=== PATIENT | female | born 1985 ===

== ENCOUNTER 2022-05-26 09:55 | Emergency (ER) | payer OTHER, SELFPAY ==
[2022-05-26] VITALS (20 sets, daily range): BP systolic 117–146; BP diastolic 65–82; PULSE 67–99; RESP 12–18; TEMP 36.8; O2SAT 98–100
--- NOTE | 2022-05-26 11:17 | ED.ABDPAIN ---
HPI - Abdominal Pain General Chief Complaint: Abdominal Pain Stated Complaint: sent from [facility] Dysentery Time Seen by Provider: 05/26/22 10:07 Source: patient Mode of arrival: Ambulatory History of Present Illness HPI narrative: The patient 37-year-old healthy female who presents today with abdominal pain and diarrhea ongoing for last 5 days or so. She reports that she was traveling in [place] she has had some intermittent bloody stools. She is had some mild nausea no significant vomiting. She reports multiple episodes of diarrhea and now some severe abdominal pain. No dizziness or lightheadedness. She reports every time she tries to drink water rashes right through her. She did have fever but that seems to have stopped as well. She was able to give us a stool sample. She denies any chest pain shortness breath palpitations or other symptoms. Related Data Previous Rx's Medication Instructions Recorded methocarbamol 500 mg tablet 500 mg PO TID PRN muscle pain #20 06/25/21 tabs ciprofloxacin HCl 500 mg tablet 500 mg PO BID #14 tabs 05/26/22 (Cipro) metronidazole 500 mg tablet 500 mg PO Q8H 7 days #21 tabs 05/26/22 ondansetron 4 mg disintegrating 4 mg PO Q8H PRN nausea and 05/26/22 tablet vomiting #10 tabs Allergies Allergy/AdvReac Type Severity Reaction Status Date / Time amoxicillin AdvReac Mild rash Verified 07/26/21 08:35 Penicillins AdvReac Mild rash Verified 07/26/21 08:35 Review of Systems Review of Systems ROS Unobtainable: All systems reviewed & are unremarkable except as noted in HPI and below Patient History Medical History Hernia Spontaneous vaginal delivery (~2014) Family History Father Alcohol abuse CAD (coronary artery disease) Social History marital status: number of children: 1 occupational status: employed Smoking Status: Current some day smoker alcohol intake: current (wine 5-7x/week) substance use type: marijuana Smoking Status: Current some day smoker tobacco type: cigarettes alcohol intake frequency: a few times a week Substance Use Type: marijuana Exam Initial Vital Signs Initial Vital Signs: Vital Signs Pulse Rate 75 03/10/23 10:01 Blood Pressure 146/82 H 05/26/22 10:01 Pulse Oximetry 100 05/26/22 10:01 GENERAL: Alert 37-year-old female appears to feel unwell and in no acute distress. HEENT: Head atraumatic,EOMI, pupils reactive, face symmetric, moist mucous membranes CARDIOVASCULAR: Regular rate and rhythm without murmurs, rubs or gallops. RESPIRATORY: Breath sounds equal bilaterally, no wheezes rales or rhonchi. ABDOMEN: Soft, mild tenderness supraumbilical area no guarding no rebound no distention EXTREMITIES: Normal range of motion, no clubbing or edema. Neurovascularly intact NEUROLOGICAL: Alert and oriented x4 SKIN: Warm, dry, no laceration, no petechiae, no rashes or lesions. Course Orders Ordered: ED Orders 05/26/22 11:30 Urine Microscopic Stat 05/26/22 11:40 Complete Blood Count AUTO DIFF Stat Comprehensive Metabolic Panel Stat Lipase Stat Discontinued Medications Sodium Chloride (Normal Saline 0.9%) 1,000 mls @ 1,000 mls/hr IV BOLUS ONE Stop: 05/26/22 11:50 Last Infusion: 05/26/22 13:08 Dose: 0 mls/hr Documented By: Admin: 05/26/22 12:06 Dose: 1,000 mls/hr Documented By: AMU Sodium Chloride (Normal Saline 0.9%) 1,000 mls @ 1,000 mls/hr IV BOLUS ONE Stop: 05/26/22 14:10 Last Infusion: 05/26/22 14:23 Dose: 0 mls/hr Documented By: Admin: 05/26/22 13:21 Dose: 1,000 mls/hr Documented By: RB Ketorolac Tromethamine (Ketorolac 30 Mg/Ml Vial) 30 mg IV NOW ONE Stop: 05/26/22 10:52 Last Admin: 05/26/22 12:06 Dose: 30 mg Documented By: AMU Ondansetron HCl (Ondansetron 4 Mg/2 Ml Inj) 4 mg IV NOW ONE Stop: 05/26/22 10:52 Last Admin: 05/26/22 12:06 Dose: 4 mg Documented By: AMU Vital Signs Vital signs: Vital Signs - 8 hr 05/26/22 11:12 05/26/22 11:15 05/26/22 11:15 Pulse Rate 67 79 Respiratory Rate Blood Pressure 137/77 Pulse Oximetry 100 98 05/26/22 11:30 05/26/22 11:30 05/26/22 11:45 Pulse Rate 74 Respiratory Rate Blood Pressure 143/72 H 143/82 H Pulse Oximetry 99 05/26/22 11:45 05/26/22 12:00 05/26/22 12:15 Pulse Rate 77 86 Respiratory Rate 16 12 Blood Pressure Pulse Oximetry 98 100 99 05/26/22 12:30 05/26/22 12:45 05/26/22 13:00 Pulse Rate 90 99 H 95 H Respiratory Rate 12 18 14 Blood Pressure Pulse Oximetry 99 100 99 05/26/22 13:08 05/26/22 13:08 05/26/22 13:15 Pulse Rate 93 H Respiratory Rate 16 Blood Pressure 121/72 118/66 Pulse Oximetry 98 05/26/22 13:15 05/26/22 13:30 05/26/22 13:30 Pulse Rate 90 91 H Respiratory Rate Blood Pressure 120/68 Pulse Oximetry 98 98 05/26/22 13:45 05/26/22 13:45 05/26/22 14:00 Pulse Rate 89 Respiratory Rate Blood Pressure 134/72 120/66 Pulse Oximetry 99 05/26/22 14:00 05/26/22 14:15 05/26/22 14:15 Pulse Rate 86 98 H Respiratory Rate 14 18 Blood Pressure 117/65 Pulse Oximetry 99 98 05/26/22 14:30 05/26/22 14:30 05/26/22 14:38 Pulse Rate 94 H Respiratory Rate 13 Blood Pressure 125/76 125/75 Pulse Oximetry 98 05/26/22 14:38 Pulse Rate 91 H Respiratory Rate 18 Blood Pressure Pulse Oximetry 98 MDM - Abdominal Pain Lab Data 05/26/22 11:40 05/26/22 11:40 Labs: Lab Results 05/26/22 05/26/22 05/26/22 Range/Units 11:30 11:40 11:40 WBC 4.7 (4.5-11.0) X10^3/uL RBC 4.59 (4.0-5.2) X10^6/uL Hgb 14.1 (12.0-16.0) g/dL Hct 41.7 (36-46) % MCV 90.9 (80-100) fL MCH 30.7 (26-34) PG MCHC 33.8 (30-36) % RDW 12.9 (11.6-14.8) % Plt Count 260 (150-400) X10^3/uL Neut % (Auto) 72.4 (50-75) % Lymph % (Auto) 18.4 L (25-40) % [place] % (Auto) 8.3 (3-14) % Eos % (Auto) 0.5 L (2-4) % Baso % (Auto) 0.4 (0-2) % Neut # (Auto) 3400 (9071-7343) /uL Lymph # (Auto) 900 L (0383-0165) /uL [place] # (Auto) 400 (0-900) /uL Eos # (Auto) 0 (0-450) /uL Baso # (Auto) 0 (0-100) /uL Sodium 134 L (137-145) mmol/L Potassium 3.6 (3.4-5.1) mmol/L Chloride 102 (98-107) mmol/L Carbon Dioxide 25 (22-32) mmol/L BUN 7 (7-17) mg/dL Creatinine 0.71 (0.52-1.04) mg/dL Estimated GFR > 60 (>60) mL/min BUN/Creatinine Ratio 9.9 (6-22) Glucose 99 (70-100) mg/dL Calcium 8.5 (8.4-10.2) mg/dL Total Bilirubin 0.2 (0.2-1.3) mg/dL AST 18 (14-36) IU/L ALT 16 (<35) IU/L Alkaline Phosphatase 56 (38-126) U/L Total Protein 6.9 (6.3-8.2) g/dL Albumin 3.9 (3.5-5.0) g/dL Globulin 3.0 (1.7-4.1) g/dL Albumin/Globulin Ratio 1.3 (1.0-2.8) Lipase 29 (23-300) U/L Urine RBC 0-1/hpf (0-5/HPF) Urine WBC 1-5/hpf (0-5/HPF) Ur Squamous Epith Cells 5-10 /hpf H (0-5/HPF) Amorphous Sediment 1+ Urine Bacteria Few (2-10) H (None) Urine Mucus 1+ H (Negative) Ur Culture Indicated? Cult not indicated Point of care testing: Point of Care Testing Test Results Negative Urine Dip Bedside Urine Glucose Negative Bedside Urine Bilirubin - Negative Bedside Urine Ketone +++ 80 Urine Specific [place] 1.020 Bedside Urine Occult Blood +/- Bedside Urine pH 6.0 Bedside Urine Protein + 30 Bedside Urine Urobilinogen - Negative Bedside Urine Nitrite - Negative Bedside Urine Leukocytes - Negative Esterase MDM Narrative Medical decision making narrative: Patient healthy 37-year-old female who presents with multiple episodes of diarrhea and fever abdominal pain ongoing for last 4-5 days after traveling. Stool sample was apparently collected but not received by lab. At this time I do think it is reasonable to start her on antibiotics. She is not significantly dehydrated there is no electrolyte abnormality or DAVID. She is not tachycardic or hypotensive. She is feeling better after Toradol Zofran and 2 L of fluids. Abdomen is reexamined not significantly tender this time I do not see any need for CT. Stool sample apparently was sent but somehow got lost in the lab. Due to the amount of diarrhea that she is having it has been ongoing for 5 days I do think reasonable to start on antibiotics. He is given Cipro and Flagyl. She is tolerating fluids. No need for admission at this time. Discharge Plan Departure Patient Disposition: Home Clinical Impression: Gastroenteritis Instructions: DI for Bacterial Gastroenteritis -- Adult Activity Restrictions/Additional Instructions: *You have been diagnosed with gastroenteritis *What to do: At this time increase fluids as tolerated. Your labs do not look terribly dehydrated. I do think it is reasonable distress buttocks. *Continue to take medications as directed Cipro 500 mg twice a day for 7 days Flagyl 500 mg 3 times a day for 7 days *Follow up with your primary care provider in 2-3 days or call [phone] *Return to ER if you should have persistent diarrhea not tolerating fluids passing out or any new, worsening or concerning symptoms Prescriptions: New metronidazole 500 mg tablet 500 mg PO Q8H 7 Days Qty: 21 0RF ciprofloxacin HCl [Cipro] 500 mg tablet 500 mg PO BID Qty: 14 0RF ondansetron 4 mg tablet,disintegrating 4 mg PO Q8H PRN (Reason: nausea and vomiting) Qty: 10 0RF No Action methocarbamol 500 mg tablet 500 mg PO TID PRN (Reason: muscle pain) Qty: 20 0RF Referrals: Keena Aguirre DO [Primary Care Provider] - Stand Alone Forms: Patient Portal/API
[2022-05-26 11:49] LABS: Add Manual Diff / Slide Review NO; Basophils Absolute Auto 0 /uL (0-100); Basophils Percent Auto 0.4 % (0-2); Eosinophils Absolute Auto 0 /uL (0-450); Eosinophils Percent Auto 0.5 % (2-4); Hematocrit 41.7 % (36-46); Hemoglobin 14.1 g/dL (12.0-16.0); Lymphocytes Absolute Auto 900 /uL (1100-4500); Lymphocytes Percent Auto 18.4 % (25-40); Mean Corpuscular HGB Conc 33.8 % (30-36); Mean Corpuscular Hemoglobin 30.7 PG (26-34); Mean Corpuscular Volume 90.9 fL (80-100); Monocytes Absolute Auto 400 /uL (0-900); Monocytes Percent Auto 8.3 % (3-14); Neutrophils Absolute Auto 3400 /uL (1500-7000); Neutrophils Percent Auto 72.4 % (50-75); Platelet Count 260 X10^3/uL (150-400); Red Blood Cell Count 4.59 X10^6/uL (4.0-5.2); Red Cell Distribution Width 12.9 % (11.6-14.8); White Blood Cell Count 4.7 X10^3/uL (4.5-11.0)
[2022-05-26 12:05] LABS: Alanine Aminotransferase 16 IU/L (<35); Albumin 3.9 g/dL (3.5-5.0); Albumin Globulin Ratio 1.3 (1.0-2.8); Alkaline Phosphatase 56 U/L (38-126); Aspartate Aminotransferase 18 IU/L (14-36); BUN Creatinine Ratio 9.9 (6-22); Bilirubin Total 0.2 mg/dL (0.2-1.3); Blood Urea Nitrogen 7 mg/dL (7-17); Calcium 8.5 mg/dL (8.4-10.2); Carbon Dioxide 25 mmol/L (22-32); Chloride 102 mmol/L (98-107); Estimated Glomerular Filt Rate > 60 mL/min (>60); Glucose 99 mg/dL (70-100); HEMOLYSIS < 15 (0-50); Lipase 29 U/L (23-300); Potassium 3.6 mmol/L (3.4-5.1); Sodium 134 mmol/L (137-145); Total Protein 6.9 g/dL (6.3-8.2)
[2022-05-26] MEDS: ONDANSETRON 4 MG/2 ML INJ IV (12:06)
[2022-05-26] MEDS: KETOROLAC 30 MG/ML VIAL IV (12:06)
[2022-05-26] MEDS: SODIUM CHLORIDE 0.9% 1,000 ML 1000 ML IV ×2 (12:06→13:21)
[2022-05-26 12:47] LABS: Amorphous Sediment Urine 1+; Bacteria Urine Few (2-10); Culture Indicated Urine Cult Not Indicated; Mucus Urine 1+ (Negative); RBC Urine 0-1/HPF (0-5/HPF); Squamous Epithelial Cell Urine 5-10 /HPF (0-5/HPF); WBC Urine 1-5/HPF (0-5/HPF)
== END 2022-05-26 14:45 | disposition home or self-care (01) ==
PROVIDERS: Emergency Provider Emergency Medicine; PCP Family Medicine
DX: K52.9 Noninfective gastroenteritis and colitis, unspecified (principal)
CPT/HCPCS: 36415; 80053; 81003; 81015; 81025; 83690; 85025; 96361; 96374; 96375; 99284; J1885; J2405

== ENCOUNTER → 2023-07-31 08:34 | Outpatient (CLI) | payer OTHER, SELFPAY | LOC: LAB 08:37 | PROVIDERS: PCP Family Medicine; Referring Provider Midwife; Visit Provider Midwife | DX: R89.1 Abnormal level of hormones in specimens from other organs, systems and tissues (principal) | CPT/HCPCS: 36415; 84144 ==

== ENCOUNTER → 2023-10-10 12:37 | Outpatient (CLI) | payer OTHER, SELFPAY ==
--- NOTE | 2023-10-10 12:38 | DI.US.S_ITS ---
PROCEDURE: US OB >= 14 WEEKS FETUS INDICATIONS: 20 WEEK ANATOMY SCAN OUTSIDE/PRIOR DATING DATA: Last menstrual period (LMP): 05/19/2023. LMP-based estimated date of delivery (MARYA): 02 23 2024. First dating scan (date and location): Not applicable. Estimated date of delivery (MARYA) from first dating scan: Not applicable. The calculations are made using the clinical MARYA of 02/23/2024. TECHNIQUE: Real-time scanning was performed of the fetus, with image documentation and biometric measurements. Endovaginal scanning: No COMPARISON: None. FINDINGS: General: A single living intrauterine gestation is present. Presentation: Vertex. Placenta: Placental position is posterior , without previa. Amniotic fluid index: 15.7 cm, normal range is 5-24 cm. Single deepest vertical pocket is 5.3 cm. heart rate: 143 beats per minute. Maternal cervical canal: 3.4 cm long. Normal lower limit is 2.5 cm. biometrics: Biparietal diameter: 5.1 cm, 21 week 4 day Head circumference: 19.1 cm, 21 week 2 day Abdominal circumference: 16.3 cm, 21 week 2 day Femur length: 3.4 cm, 20 week 6 day Clinically estimated gestational age: 20 week 4 day Composite gestational age from present scan: 21 week 2 day Estimated weight and percentile: 403 g, 77 percentile Anatomic survey: Neuro: Ventricles are non-dilated at less than 10 mm. Cisterna magna is normal at 3-11 mm. Cerebellum is normal in size and morphology. Nuchal skin fold: Normal at less than 6 mm between 14-21 weeks gestational age. Face: Nose and lips, facial profile are normal. Spine: No evidence for spina bifida. Heart: 4-chambered heart is present, with normal ventricular outflow tracts. Diaphragm: Diaphragm is intact. Stomach: Left-sided stomach is present. Kidneys: No hydronephrosis. Normal is less than 5 mm in 2nd trimester, less than 7 mm in 3rd trimester. Cord: 3-vessel cord has orthotopic insertion. Bladder: Normal in size. Extremities: All 4 extremities identified. IMPRESSION: Single live intrauterine consistent with 21 week 2 day by current ultrasound Approved by: Davi Fernando M.D. on 10/10/2023 at 21:40
== END ==
PROVIDERS: Referring Provider Midwife; Visit Provider Midwife
DX: Z36.89 Encounter for other specified antenatal screening (principal); Z3A.21 21 weeks gestation of pregnancy
CPT/HCPCS: 76811